=== PATIENT | female | born 1990 | race Caucasian/White ===

== ENCOUNTER 2022-04-17 11:59 | Inpatient (IN) | payer BC, MEDICAID, SELFPAY ==
[2022-04-17] VITALS (54 sets, daily range): BP systolic 101–142; BP diastolic 56–88; PULSE 72–133; RESP 16–18; TEMP 36.8–36.9; O2SAT 87–100; BMI 26.5
[2022-04-17] MEDS: lactated ringers 1,000 ML 999 ML IV (12:21)
[2022-04-17] MEDS: fentaNYL 50 mcg/mL INJ 2mL IVP (12:21)
[2022-04-17 12:46] LABS: Basophils # 0.1 10^3/uL (0.0-0.1); Basophils % 0.2 %; Eosinophils # 0.1 10^3/uL (0.0-0.8); Eosinophils % 0.4 %; Hematocrit 33.7 % (37.0-47.0); Lymphocytes # 1.7 10^3/uL (0.8-4.8); Lymphocytes % 8.3 %; Mean Corpuscular HGB Conc 32.6 g/dL (30.0-36.0); Mean Corpuscular Hemoglobin 27.2 pg (28.0-34.0); Mean Corpuscular Volume 83.4 fl (81-99); Mean Platelet Volume 11.1 fL (7.4-10.4); Monocytes # 1.1 10^3/uL (0.2-0.9); Monocytes % 5.5 %; Neutrophils # 17.14 10^3/uL (1.8-7.7); Neutrophils % 84.8 %; Nucleated Red Blood Cells % 0 %; Platelet Count 226 10^3/cmm (130-400); Red Blood Count 4.04 10^6/uL (4.1-5.3); Red Cell Distribution Width 12.7 % (12.1-15.1); White Blood Count 20.3 10^3/uL (4.0-10.0)
--- NOTE | 2022-04-17 13:43 | ANES.PREANE2 ---
Pre-Anesthetic Assessment Height/Weight: Height 1.57 m Weight 65.864 kg Pulse Resp BP Pulse Ox O2 Del Method 83 18 108/61 98 04/17/22 13:30 04/17/22 12:21 04/17/22 10:44 04/17/22 13:30 04/17/22 12:33 Preop Diagnosis: Expected Labor Epidural Familial anesthetic complications: None Was Beta Tenisha taken within 24 hours: N/A Was Clonidine taken within 24 hours: N/A Last intake: 04/16/22 Exam alert, oriented x 3, clear to auscultation bilaterally and regular rate & rhythm Airway Submandibular: within normal limits Cervical ROM: within normal limits Mallampati: Class II History/ROS No significant history except as noted Pulmonary None reported CV/HEM None reported None reported Hepatic None reported GI Gastroesophageal Reflux Disease Metabolic None reported Musc/skel None reported Neuropsych None reported Anesthetic Plan ASA status: 2 Anesthesia: Anesthesia Evaluation and Regional (specify below) Risk of > 500 ml blood loss (7ml/kg in children): No Medications/Allergies Current Medications Generic Name Dose Route Start Last Admin Trade Name Freq PRN Reason Stop Dose Admin Fentanyl 25 - 100 mcg 04/17/22 11:59 04/17/22 12:21 Fentanyl 50 Mcg/Ml Inj 2ml IVP 25 mcg Q1H PRN Administration SEVERE PAIN Lactated Ringer's 1,000 mls @ 999 mls/hr 04/17/22 12:14 04/17/22 12:21 Lactated Ringers IV 999 mls/hr .Q1H1M PRN Administration See label comments PFSH Anesthesia Female Reproductive History : 2 Data Anesthesia : 04/17/22 11:55 Short CBC 04/17/22 Range/Units 11:55 WBC 20.3 H (4.0-10.0) 10^3/uL Hgb 11.0 L (11.5-15.3) g/dL Hct 33.7 L (37.0-47.0) % MCV 83.4 (81-99) fl Plt Count 226 (130-400) 10^3/cmm Neut % (Auto) 84.8 % Neut # (Auto) 17.14 H (1.8-7.7) 10^3/uL Cardiac Studies: No Data to Display Anesthesia Procedures Date of Procedure 04/17/22 Epidural Time Out Performed: Yes Consents Signed: Procedure Consent Consent: from patient Lumbar Level: L4-L5 Epidural position: sitting Epidural procedure: sterile prep of area, 1% lidocaine to numb the area, neg for paresthesia, test dose given, 1.5% xylocaine 1:200k epi, placed PCEA, no systemic response, sterile dressing applied, L.U.D. no apparent complications and 0.2% Ropiavacaine @ mls/hr (13)
--- NOTE | 2022-04-17 13:44 | PM.OPHPUD ---
Labor & Delivery H&P Update Date of Procedure: April 17, 2022 Date H&P Performed: 04/16/22 Changes to previous documentation: Patient cervix is dilated to 5 cm with 70% effacement Admission Diagnosis: 31-year-old 2 para 1-0-0-1 with an estimated gestational age of 38 weeks presenting to the hospital in active labor Other information: The patient is a 31-year-old female whose has been remarkable for having gestational diabetes. Despite the fact that she tested positive for gestational diabetes and her 3-hour glucose screen, her blood sugars have consistently been in the 80-110 range without any intervention other than diet control. Otherwise her labs have been within normal limits. Her blood type is O+. Her antibody screen is negative. Her infectious disease profile has been within normal limits. She is GBS negative. Rubella immune.
[2022-04-17] MEDS: ondansetron 2 mg/ML SDV 2 mL 4 MG IVP (13:58)
[2022-04-17] MEDS: dextrose 5%-lactated ringers 1,000 ML 125 ML IV (13:59)
[2022-04-17] MEDS: oxytocin 30 UNIT/500 ML BAG IV (16:55)
--- NOTE | 2022-04-17 18:26 | P.PCNOB_ITS ---
Delivery Note: Date of delivery: April 17, 2022 Pre-delivery diagnoses: 1. 31-year-old with an estimated gestational age of 38 weeks presenting in active labor 2. Gestational diabetes Post-delivery diagnoses: Status post spontaneous vaginal delivery Procedure: Spontaneous vaginal delivery Delivering Physician: Stevne Gandhi Estimated blood loss (mL): 100 Pre-Delivery Course: The patient presented to the hospital complaining of co ntractions. She made cervical dilation changes in her first 2 hours in the hospital. She was admitted. An epidural was placed. She progressed to to an anterior lip then regressed to 9 cm. As result Pitocin was initiated, and she progressed to complete without difficulty. Delivery: DELIVERY: The patient progressed to complete without difficulty. She delivered a male with a weight of 6 pounds 5 ounces with Apgars of 8, 9. The baby was delivered from the JESSICA position and placed on the mother's abdomen. The cord was then clamped and cut. There was no nuchal cord. There was no meconium. A large developed clot did deliver shortly after the baby shoulder. The placenta and 3 vessel cord were delivered intact shortly thereafter. The p lacenta was in poor condition, and had difficulty telling whether all the cotyledons were in place. As result I manually explored the uterus to see if there is any residual placental pieces left over. The uterine cavity was cleaned. The patient tolerated the procedure well. The perineum and vaginal vault were carefully examined. No lacerations were noted. Both the mother and the baby were in stable condition. Post-Delivery Status: Good A&P Assessment and plan (1) Spontaneous vaginal delivery: I anticipate routine care. The patient's sugars were always within normal range during her . I will go ahead and check twice a day glucose readings to verify that she continues to have excellent readings. If all goes well anticipate she can be will be discharged tomorrow evening. Status: Acute (2) Gestational diabetes mellitus: Status: Acute Coding Level of Care Code Acute Coin Box Collector for Chg Fwd Diagnoses Spontaneous vaginal delivery O80 Gestational diabetes mellitus O24.419
[2022-04-17] MEDS: benzocaine-menthol 78 gm Canister 1 SPRAY TOPICAL (21:15)
[2022-04-17] MEDS: lanolin oint 7 gm 1 APPLIC TOPICAL (21:15)
[2022-04-17] MEDS: ibuprofen 800 mg tablet PO (21:15)
[2022-04-17 23:56] LABS: Glucose Point of Care 123 mg/dL (70-110)
[2022-04-18] VITALS (8 sets, daily range): BP systolic 120–139; BP diastolic 62–83; PULSE 73–88; RESP 18; TEMP 36.6–36.8
[2022-04-18] MEDS: HYDROcodone-acetaminophen 5-325 mg Tablet PO ×2 (00:18→15:31)
[2022-04-18 06:53] LABS: Hematocrit 29.7 % (37.0-47.0); Hemoglobin 9.4 g/dL (11.5-15.3); Mean Corpuscular HGB Conc 31.6 g/dL (30.0-36.0); Mean Corpuscular Hemoglobin 26.9 pg (28.0-34.0); Mean Corpuscular Volume 85.1 fl (81-99); Mean Platelet Volume 10.9 fL (7.4-10.4); Platelet Count 201 10^3/cmm (130-400); Red Blood Count 3.49 10^6/uL (4.1-5.3); White Blood Count 26.7 10^3/uL (4.0-10.0)
[2022-04-18 07:28] LABS: Glucose Point of Care 91 mg/dL (70-110)
--- NOTE | 2022-04-18 08:05 | P.DS_ITS ---
Discharge Providers POOL TECHNICIAN Date of Admission: 04/17/22 18:37 Date of Discharge: 04/18/22 Attending Provider at Admission: Steven Gandhi MD Attending Provider at Discharge: Steven Gandhi MD Primary Care Provider: Mary Carmona Diagnoses at Discharge Discharge Diagnosis (1) Spontaneous vaginal delivery: Status: Acute (2) Gestational diabetes mellitus: Status: Acute Reason for Visit Reason for Visit: contractions Hospital Course Hospital Course The patient has had an unremarkable hospital stay. She presented in active labor and progressed to complete without difficulty. Her course has been unremarkable. Her bleeding has been within normal limits. Her pain is been well controlled. She is breast-feeding well. Information Peripartum Data: Infant Delivery Method: Vaginal Physical Exam Narrative: The patient is alert. She appears comfortable. Her heart has a regular rate and rhythm with no murmurs appreciated. Lungs are clear to auscultation bilaterally. Her fundus is firm and below the umbilicus. Urinary Catheter Management: [place]: Cath Placed During This Visit: yes Urinary Catheter Date of Insertion: 04/17/22 Urinary Catheter Time of Insertion: 14:00 Discharge Data Studies Completed and Pending Laboratory Results WBC 26.7 10^3/uL (4.0-10.0) H 04/18/22 06:40 RBC 3.49 10^6/uL (4.1-5.3) L 04/18/22 06:40 Hgb 9.4 g/dL (11.5-15.3) L 04/18/22 06:40 Hct 29.7 % (37.0-47.0) L 04/18/22 06:40 MCV 85.1 fl (81-99) 04/18/22 06:40 MCH 26.9 pg (28.0-34.0) L 04/18/22 06:40 MCHC 31.6 g/dL (30.0-36.0) 04/18/22 06:40 RDW 13.0 % (12.1-15.1) 04/18/22 06:40 Plt Count 201 10^3/cmm (130-400) 04/18/22 06:40 MPV 10.9 fL (7.4-10.4) H 04/18/22 06:40 Neut % (Auto) 84.8 % 04/17/22 11:55 Lymph % (Auto) 8.3 % 04/17/22 11:55 [place] % (Auto) 5.5 % 04/17/22 11:55 Eos % (Auto) 0.4 % 04/17/22 11:55 Baso % (Auto) 0.2 % 04/17/22 11:55 Neut # (Auto) 17.14 10^3/uL (1.8-7.7) H 04/17/22 11:55 Lymph # (Auto) 1.7 10^3/uL (0.8-4.8) 04/17/22 11:55 [place] # (Auto) 1.1 10^3/uL (0.2-0.9) H 04/17/22 11:55 Eos # (Auto) 0.1 10^3/uL (0.0-0.8) 04/17/22 11:55 Baso # (Auto) 0.1 10^3/uL (0.0-0.1) 04/17/22 11:55 Nucleated RBC % (auto) 0 % 04/17/22 11:55 Nucleated RBCs # 0.0 /100WBC 04/17/22 11:55 POC Glucose 91 mg/dL (70-110) 04/18/22 07:25 Vitals Last Vital Signs Temp 97.8 F 04/18/22 03:30 Pulse 84 04/18/22 03:49 Resp 18 04/18/22 03:30 BP 138/83 04/18/22 03:49 Pulse Ox 98 04/17/22 13:30 O2 Del Method 04/17/22 12:33 Discharge Plan Discharge Patient Disposition: Home Condition: Stable Prescriptions: New ibuprofen 800 mg Tablet 800 mg PO TID Qty: 45 0RF -U 106.5-1 mg Capsule 1 cap PO DAILY Qty: 100 0RF Discharge Orders: Discharge Order (Routine); Ordered 04/18/22 Ordered By: Steven Gandhi Referrals: Steven Gandhi MD [Physician] - 6 Weeks Discharge Diet: Usual diet Discharge Activity: Limit activity as instructed Patient Instructions: Opioid Safety Discharge Attestations POOL TECHNICIAN Time Spent in Discharge Care*: less than 30 min Coding Level of Care Code Acute Press Tender [employer] Signal for Chg Fwd Diagnoses Spontaneous vaginal delivery O80 Gestational diabetes mellitus O24.419
[2022-04-18] MEDS: ibuprofen 800 mg tablet PO ×2 (09:40→15:31)
[2022-04-18] MEDS: docusate sodium 100 mg Capsule PO ×2 (09:40→18:39)
[2022-04-18] MEDS: prenatal vitamin Capsule 1 CAP PO (09:40)
--- NOTE | 2022-04-18 16:31 | ANE.PACU2 ---
Inpatient post-anesthesia follow up: Airway intact: Yes Vital signs: Temperature 98.2 F Pulse Rate 76 Respiratory Rate 18 Blood Pressure 123/62 Pulse Oximetry 98 Oxygen Delivery Me thod Room Air Oxygen Flow Rate Fraction of Inspir ed Oxygen Hydration adequate: Yes Nausea and vomiting: No Pain level: 5 Mental status: Baseline Additional Comments: EMR review
== END 2022-04-18 19:25 | disposition home or self-care (01) | DRG 807 ==
LOC: OPOB 04-18 08:44 → OBGYN 04-18 08:45
PROVIDERS: Admitting Provider Family Medicine; PCP Nurse Practitioner Family; Visit Provider Family Medicine
DX: O24.420 Gestational diabetes mellitus in childbirth, diet controlled (principal); Z37.0 Single live birth; Z3A.38 38 weeks gestation of pregnancy
CPT/HCPCS: 12345; 36415; 36416; 51702; 59025; 59409; 82962; 85025; 85027; 99211; J2405; J3010

== ENCOUNTER 2023-10-10 12:30 | Outpatient (CLI) | payer BC, MEDICAID, SELFPAY ==
--- NOTE | 2023-10-10 12:42 | US_ITS ---
WS: [id number] US pelv w/transvag [id number] HISTORY: LOWER ABDOMINAL PAIN/ABNORMAL LEVEL OF HORMONES COMPARISON: None Uterus: 7.6 cm x 4.0 cm x 3.1 cm. Normal size anteverted uterus. No fibroid or mass. Endometrium: 0.3 cm. Normal endometrium. Very slight lobulation of the endometrium towards the fundus . Right ovary: 1.9 cm x 1.8 cm x 1.7 cm. Normal size with a small follicle. Normal vascularity. Left ovary: 2.8 cm x 1.6 cm x 2.4 cm. Dominant follicle LEFT ovary measures 1.5 x 2.0 x 1.7 cm. Peace l ovarian vascularity. No free fluid in the cul-de-sac. IMPRESSION: 1. Normal endometrium. 2. Bilateral ovarian follicles. No cyst or solid mass.
== END 2023-10-10 12:31 | disposition home or self-care (01) ==
LOC: RAD 12:30
PROVIDERS: PCP Nurse Practitioner Family; Visit Provider Nurse Practitioner Family
DX: R10.30 Lower abdominal pain, unspecified (principal); R89.1 Abnormal level of hormones in specimens from other organs, systems and tissues
CPT/HCPCS: 76830; 76856